=== PATIENT | male | born 1980 | race Caucasian/White ===

== ENCOUNTER 2023-10-14 07:59 | Emergency (ER) | payer BC ==
[2023-10-14 08:16] VITALS: BP 132/84; PULSE 90
[2023-10-14] MEDS: Lidocaine 1% 30 ML SDV INJECT ONE (08:30)
[2023-10-14] MEDS: Diphtheria,Pertussis(Acell),Tetanus Vaccine 0.5 ML Syringe IM ONE (09:13)
== END 2023-10-14 09:18 | disposition home or self-care (01) ==
LOC: VM.ED 07:59 → SUPCPDRO 07:59 → VM.ED 09:18
DX: S81.811A Laceration without foreign body, right lower leg, initial encounter (principal); Z23 Encounter for immunization; W26.8XXA Contact with other sharp object(s), not elsewhere classified, initial encounter; Y93.H3 Activity, building and construction; Y99.0 Civilian activity done for income or pay
CPT/HCPCS: 12005; 90471; 90715; 99282-25; J3490